=== PATIENT | male | born 1950 | race Caucasian/White ===

== ENCOUNTER 2019-12-15 07:35 | Outpatient (CLI) | payer MEDICARE, OTHER, SELFPAY ==
--- NOTE | ~2019-12-15 | CT_ITS ---
EXAMINATION:CT lung screening DATE: 12/15/2019 09:02 INDICATION: Personal history of tobacco dependence. Smoker who quit 10 years ago with 80 pack year hi story. TECHNIQUE: Computed tomography (CT) of the chest was performed without intravenous contrast. Automate d exposure control and iterative reconstruction technique were employed. The dose-length product (DLP ) was 453.64 mGy-cm. COMPARISON: Chest CT 08/16/2018 FINDINGS: There is moderate emphysema. There is mild peripheral scarring in the lower lobes. There is a 4 mm nodule in the left major fissure. There is a 4 mm nodule in left lower lobe without change. C alcified bilateral lung nodules and calcified left hilar lymph nodes are consistent with old granulom atous disease. No pleural effusion. The heart size is normal. There are coronary artery calcification s. No pericardial effusion. There is mild bilateral gynecomastia. Partially visualized is a 2.6 cm ma ss in left kidney measuring soft tissue attenuation. There is mild thoracic spondylosis. IMPRESSION: 1. Lung-RADS category 2S: Benign appearance or behavior. Continue annual screening with noncontrast l ow-dose chest CT in 12 months. 2. Partially visualized 2.6 cm left kidney mass, which may be a hemorrhagic cysts or less likely a so lid neoplasm. Abdomen CT without and with contrast is recommended. Reviewed, dictated and finalized at location A. IMPRESSION: 1. Lung-RADS category 2S: Benign appearance or behavior. Continue annual screen ing with noncontrast low-dose chest CT in 12 months. 2. Partially visualized 2.6 cm left kidney mass, which may be a hemorrhagic cys ts or less likely a solid neoplasm. Abdomen CT without and with contrast is rec ommended.
--- NOTE | ~2019-12-15 | US_ITS ---
EXAMINATION: US aorta DATE: 12/15/2019 08:31 INDICATION: Abdominal aortic aneurysm. TECHNIQUE: Grayscale, color Doppler, and pulsed Doppler images of the aorta and common iliac arteries were obtained. COMPARISON: Ultrasound 08/17/2018 FINDINGS: The aorta demonstrates a 5.2 x 4.5 cm fusiform infrarenal aneurysm. The right common iliac artery mauricio sures 1.5 cm. The left common iliac artery measures 1.5 cm. IMPRESSION: 1. 5.2 cm fusiform infrarenal aortic aneurysm with interval worsening. Abdomen and pelvis CTA is jaja mmended. Reviewed, dictated and finalized at location A. IMPRESSION: 1. 5.2 cm fusiform infrarenal aortic aneurysm with interval worsening. Abdomen and pelvis CTA is recommended.
== END 2019-12-15 07:36 | disposition home or self-care (01) ==
LOC: CHSIMG 07:41
PROVIDERS: PCP Internal Medicine; Visit Provider Internal Medicine
DX: I71.4 Abdominal aortic aneurysm, without rupture (principal); Z12.2 Encounter for screening for malignant neoplasm of respiratory organs; Z87.891 Personal history of nicotine dependence
CPT/HCPCS: 76775; G0297

== ENCOUNTER 2019-12-16 09:55 | Outpatient (CLI) | payer MEDICARE, OTHER, SELFPAY ==
--- NOTE | ~2019-12-16 | CT_ITS ---
EXAMINATION: CT abdomen wo/w con DATE: 12/16/2019 11:28 INDICATION: Left renal mass TECHNIQUE: Computed tomography (CT) of the abdomen was performed prior to 10 following the administra tion of 100 cc of Omnipaque 350 intravenous contrast. Automated exposure control and iterative recons truction technique were employed. COMPARISON: 12/15/2019 FINDINGS: Minimal dependent atelectasis is present in the lung bases. The heart size is normal. Punct ate calcifications in an otherwise normal spleen likely represent healed granulomatous disease. The l iver, pancreas, gallbladder, and adrenal glands are normal. There is a 2.6 x 2.7 cm left kidney lesio n without significant enhancement after contrast administration. There is a 5 mm cyst of the right ki dney. There are no pathologically enlarged abdominal lymph nodes. There is no free intraperitoneal ga s or evidence of bowel obstruction. The appendix is normal. There is moderate lumbar spondylosis at L 4-5. IMPRESSION: 1. Proteinaceous cyst of the left kidney. No suspicious kidney mass identified. Reviewed, dictated and finalized at location B.
[2019-12-16 10:27] LABS: Estimated Glomerular Filt Rate > 60
== END 2019-12-16 09:56 | disposition home or self-care (01) ==
LOC: CHSIMG 09:57
PROVIDERS: PCP Internal Medicine; Visit Provider Internal Medicine
DX: D49.512 Neoplasm of unspecified behavior of left kidney (principal)
CPT/HCPCS: 74170; Q9965

== ENCOUNTER 2021-02-27 08:57 | Outpatient (CLI) | payer MEDICARE, OTHER, SELFPAY ==
--- NOTE | ~2021-02-27 | XR_ITS ---
EXAMINATION: XR tibia fibula LT 2V DATE: 02/27/2021 09:45 INDICATION: Left lower leg fracture. TECHNIQUE: 2 views of left tibia and fibula on 4 radiographs were obtained. COMPARISON: None. FINDINGS: There is an oblique fracture of proximal tibial metadiaphysis. Internal fixation is seen wi th antegrade intramedullary liz, distal interlocking screw, and 5 proximal screws. There is a suture anchor in patella. There is a fracture of fibular neck with impaction. There is moderate osteoarthrit is of lateral compartment and mild osteoarthritis of medial and patellofemoral compartments of the kn ee. No knee joint effusion. IMPRESSION: 1. Oblique fracture of proximal tibial metadiaphysis status post open reduction internal fixation. 2. Fracture deformity of left fibular neck. 3. Moderate left knee osteoarthritis. Reviewed, dictated and finalized at location A.
--- NOTE | ~2021-02-27 | XR_ITS ---
EXAMINATION: XR_CERV2-3V_CR DATE: 02/27/2021 09:45 INDICATION: Cervical spine fracture. TECHNIQUE: 4 views of cervical spine were obtained. COMPARISON: None. FINDINGS: Bone alignment is normal. Vertebral body heights and intervertebral disc heights are normal . There is interbody fusion at C2-C3. There is a fracture of the C1 lamina on the lateral view. The f acet joints are unremarkable. No central canal stenosis. IMPRESSION: 1. Fracture of the C1 lamina. Correlation with CT is recommended. Reviewed, dictated and finalized at location A.
== END 2021-02-27 08:58 | disposition home or self-care (01) ==
LOC: CHSIMG 09:02
PROVIDERS: PCP Internal Medicine; Visit Provider Internal Medicine
DX: S82.402D Unspecified fracture of shaft of left fibula, subsequent encounter for closed fracture with routine healing (principal); S82.202D Unspecified fracture of shaft of left tibia, subsequent encounter for closed fracture with routine healing; S12.9XXD Fracture of neck, unspecified, subsequent encounter
CPT/HCPCS: 72040; 73590

== ENCOUNTER 2021-05-31 07:10 | Outpatient (CLI) | payer MEDICARE, OTHER, SELFPAY ==
--- NOTE | ~2021-05-31 | CT_ITS ---
EXAMINATION:CT lung screening DATE: 05/31/2021 07:47 INDICATION: Personal history of tobacco dependence. Smoker who quit 11 years ago with 80 pack year hi story. TECHNIQUE: Computed tomography (CT) of the chest was performed without intravenous contrast. Automate d exposure control and iterative reconstruction technique were employed. The dose-length product (DLP ) was 362.33 mGy-cm. COMPARISON: Chest CT 12/15/2019 FINDINGS: There is moderate emphysema. There is mild scarring in the paraspinal lower lobes. Calcifie d bilateral lung nodules and calcified hilar and mediastinal lymph nodes are consistent with old gran ulomatous disease. There are a few nodules in left lung measuring up to 3 mm. No pleural effusion. Th e heart size is normal. There are coronary artery calcifications. No pericardial effusion. There is m ild thoracic spondylosis. There is a healing fracture of the sternum. There are subacute versus chron ic compression fractures of T1, T2, and T3, new from 12/15/19. There is mild chronic anterior wedging o f T5. IMPRESSION: 1. Lung-RADS category 2: Benign appearance or behavior. Continue annual screening with noncontrast lo w-dose chest CT in 12 months. Reviewed, dictated and finalized at location A. IMPRESSION: 1. Lung-RADS category 2: Benign appearance or behavior. Continue annual screeni ng with noncontrast low-dose chest CT in 12 months.
--- NOTE | ~2021-05-31 | XR_ITS ---
XR tibia fibula LT 2V 05/31/2021 07:48 Indication: Left tibial fracture. Previous surgery in 01/2021 Procedure: 2 views left tibia/fibula Comparison: 02/27/2021 Findings: There is a healing oblique fracture of the proximal tibial metadiaphysis. Internal fixation is seen with intramedullary liz, distal interlocking screw and 5 proximal interlocking screws. There is a suture anchor in the patella. There is a healing fibular neck fracture. There is osteoarthritis of the left knee and ankle. No significant joint effusion. Impression: 1: Healing oblique fracture left proximal tibial metadiaphysis with stable alignment. 2: Healing proximal fibular neck fracture. Reviewed, dictated and finalized at location A. Impression: 1: Healing oblique fracture left proximal tibial metadiaphysis with stable alig nment. 2: Healing proximal fibular neck fracture.
== END 2021-05-31 07:11 | disposition home or self-care (01) ==
LOC: CHSIMG 07:12
PROVIDERS: PCP Internal Medicine; Visit Provider Internal Medicine
DX: Z12.2 Encounter for screening for malignant neoplasm of respiratory organs (principal); Z87.891 Personal history of nicotine dependence; S82.202D Unspecified fracture of shaft of left tibia, subsequent encounter for closed fracture with routine healing
CPT/HCPCS: 71271; 73590

== ENCOUNTER 2022-06-17 08:21 | Outpatient (CLI) | payer MEDICARE, OTHER, SELFPAY ==
--- NOTE | ~2022-06-17 | CT_ITS ---
EXAMINATION: CTA abdomen pelvis DATE: 06/17/2022 09:27 INDICATION: Abdominal aortic aneurysm TECHNIQUE: Computed tomographic angiography (CTA) of the abdomen and pelvis was performed with 100 mL Omnipaque-350 intravenous contrast. Maximum intensity projection 3D-reconstructions of the aorta and other arteries were constructed by the technologist on a separate workstation. The dose-length produ ct (DLP) was 1296.22 mGy-cm. Automated exposure control and iterative reconstruction technique were e mployed. COMPARISON: 12/16/2019 FINDINGS: Minimal dependent atelectasis is present in the lung bases. The heart size is normal. Punct ate calcifications in an otherwise normal spleen likely represent healed granulomatous disease. The l iver, pancreas, gallbladder, and adrenal glands are normal. There is stable 2.7 cm proteinaceous cyst of the left kidney. There is a 5 mm cyst of the right kidney. There is a 3.2 x 3.1 cm fusiform aneur ysm of the infrarenal abdominal aorta. No pathologically enlarged abdominal or pelvic lymph nodes are identified. There is no free intraperitoneal gas or evidence of bowel obstruction. Colonic diverticu losis is present without evidence of diverticulitis. The appendix is normal. There is moderate lumbar spondylosis. IMPRESSION: 1. 3.2 cm fusiform infrarenal abdominal aortic aneurysm. Reviewed, dictated and finalized at location A.
--- NOTE | ~2022-06-17 | CT_ITS ---
EXAMINATION: CT lung screening DATE: 06/17/2022 09:28 INDICATION: Personal history of nicotine dependence, prior smoker with 80 pack year history TECHNIQUE: Computed tomography (CT) of the chest was performed without intravenous contrast. The dose -length product (DLP) was 312.24 mGy-cm. Automated exposure control and iterative reconstruction tech [employer] were employed. COMPARISON: 05/31/2021 FINDINGS: There is moderate emphysema. There are stable nodules measuring up to 3 mm in the left lowe r lobe. No new pulmonary nodules are identified. The lungs are free of acute opacities. No pleural ef fusion or pneumothorax. Calcified pulmonary nodules and calcified left hilar lymph nodes are consiste nt with old granulomatous disease. Bilateral gynecomastia is noted. No pathologically enlarged thorac ic lymph nodes are identified. The heart size is normal. There is mild thoracic spondylosis. Chronic compression fractures of T1, T2, and T3 are again noted. IMPRESSION: 1. Lung-RADS category 2: Benign appearance or behavior. Continue annual screening with noncontrast lo w-dose chest CT in 12 months. Reviewed, dictated and finalized at location A. IMPRESSION: 1. Lung-RADS category 2: Benign appearance or behavior. Continue annual screeni ng with noncontrast low-dose chest CT in 12 months.
[2022-06-17 08:45] LABS: Estimated Glomerular Filt Rate > 60
== END 2022-06-17 08:22 | disposition home or self-care (01) ==
LOC: CHSIMG 08:24
PROVIDERS: PCP Internal Medicine; Visit Provider Internal Medicine
DX: I71.40 Abdominal aortic aneurysm, without rupture, unspecified (principal); Z12.2 Encounter for screening for malignant neoplasm of respiratory organs; Z87.891 Personal history of nicotine dependence
CPT/HCPCS: 71271; 74174; Q9967

== ENCOUNTER 2023-06-18 07:15 | Outpatient (CLI) | payer MEDICARE, OTHER, SELFPAY ==
--- NOTE | ~2023-06-18 | CT_ITS ---
CT Scan of the Chest without Contrast: Clinical Indication: Lung cancer screening, personal history of nicotine dependence Technique: Contiguous sections were acquired throughout the chest without intravenous contrast. Dose reduction technique was used on this scan by utilizing automated exposure control and iterative recon struction technique. The dose-length product (DLP) was 306.95 mGy-cm. COMPARISON: 06/17/2022, 05/31/2021 Findings: There is no evidence of any significant mediastinal, hilar or axillary lymphadenopathy. Small calcifi ed left hilar lymph nodes are present. Atherosclerotic calcifications of the aorta and coronary arter ies are present. There is no evidence of pleural or pericardial effusion. Stable 3 mm left lower lobe pulmonary nodule noted. Several small calcifications, as are present. Mil d to moderate emphysema present. Images through the upper abdomen reveal no abnormalities. There are stable compression deformities of T1, T2, and T3. Impression: Lung RADS 2: Benign appearance. 12 month follow-up screening CT advised. Reviewed, dictated and finalized at location . Impression: Lung RADS 2: Benign appearance. 12 month follow-up screening CT advised.
--- NOTE | ~2023-06-18 | CT_ITS ---
EXAMINATION: CTA abdomen pelvis DATE: 06/18/2023 08:17 INDICATION: Abdominal aortic aneurysm TECHNIQUE: Computed tomographic angiography (CTA) of the abdomen and pelvis was performed with 100 mL Omnipaque-350 intravenous contrast. Maximum intensity projection 3D-reconstructions of the aorta and other arteries were constructed by the technologist on a separate workstation. The dose-length produ ct (DLP) was 1420.47 mGy-cm. Automated exposure control and iterative reconstruction technique were e mployed. COMPARISON: 06/17/2022 FINDINGS: Minimal dependent atelectasis is present in the lung bases. The heart size is normal. The l iver, spleen, pancreas, gallbladder, and adrenal glands are normal. There is a 2.8 cm proteinaceous c yst of the left kidney. There is a 5 mm cyst of the right kidney. There is a stable 3.2 x 3.1 cm fusi form infrarenal abdominal aortic aneurysm. No pathologically enlarged abdominal or pelvic lymph nodes are identified. No free intraperitoneal gas or evidence of bowel obstruction. There is calcified ath erosclerosis of the aorta and many of the other arteries. The celiac axis, superior mesenteric artery , and inferior mesenteric artery are normal at their origins. There is a single left renal artery. Th ere are two right renal arteries, one of which is small in caliber. Colonic diverticulosis is present without evidence of diverticulitis. The appendix is normal. There is moderate lumbar spondylosis at L4-5. IMPRESSION: 1. Stable 3.2 cm fusiform infrarenal abdominal aortic aneurysm. Reviewed, dictated and finalized at location L.
[2023-06-18 07:41] LABS: Estimated Glomerular Filt Rate > 60
== END 2023-06-18 07:16 | disposition home or self-care (01) ==
LOC: CHSIMG 07:18
PROVIDERS: PCP Internal Medicine; Visit Provider Internal Medicine
DX: I71.43 Infrarenal abdominal aortic aneurysm, without rupture (principal); Z12.2 Encounter for screening for malignant neoplasm of respiratory organs; Z87.891 Personal history of nicotine dependence
CPT/HCPCS: 71271; 74174; Q9967

== ENCOUNTER 2024-06-23 07:48 | Outpatient (CLI) | payer MEDICARE, OTHER, SELFPAY ==
--- NOTE | ~2024-06-23 | CT_ITS ---
CT Scan of the Chest without Contrast: Clinical Indication: Lung cancer screening, nicotine dependence Technique: Contiguous sections were acquired throughout the chest without intravenous contrast. Dose reduction technique was used on this scan by utilizing automated exposure control and iterative recon struction technique. The dose-length product (DLP) was 391.38 mGy-cm. COMPARISON: 06/18/2023 Findings: There is no evidence of any significant mediastinal, hilar or axillary lymphadenopathy. Calcified lef t hilar and mediastinal lymph nodes are present. Extensive coronary artery calcifications are present . There is no evidence of pleural or pericardial effusion. Stable 3 mm left lower lobe pulmonary nodule (axial image 83). Moderate emphysema present. Images through the upper abdomen reveal no abnormalities. Stable mild compression deformities in the upper thoracic spine. Impression: Lung RADS 2: Benign appearance. 12 month follow-up screening CT advised. Reviewed, dictated and finalized at [facility]. Impression: Lung RADS 2: Benign appearance. 12 month follow-up screening CT advised.
--- NOTE | ~2024-06-23 | CT_ITS ---
EXAMINATION: CTA abdomen pelvis DATE: 06/23/2024 09:33 INDICATION: Abdominal aortic aneurysm. TECHNIQUE: Computed tomographic angiography (CTA) of the abdomen and pelvis was performed with 100 mL Omnipaque-350 intravenous contrast. Automated exposure control and iterative reconstruction techniqu e were employed. The dose-length product was 1357.68 mGy-cm. Maximum intensity projection 3D-reconstr uctions of the aorta and other arteries were constructed by the technologist on a separate workstatio n. COMPARISON: CT 06/18/2023 FINDINGS: The visualized portions of the lung bases demonstrate mild atelectasis on the right. No ple ural effusion. The heart size is normal. No pericardial effusion. The liver, gallbladder, pancreas, a nd adrenal glands are normal. Calcifications in the spleen are consistent with old granulomatous dise ase. The right kidney is normal. There is a 2.9 cm cyst in left kidney. The prostate is mildly enlarg ed. There is diverticulosis of the colon without evidence of diverticulitis. The appendix is normal. There are no dilated loops of bowel. There are no pathologically enlarged lymph nodes. There is no fr ee intraperitoneal fluid. There is a 3.3 cm fusiform aneurysm of infrarenal aorta. There is severe minoo mbar spondylosis. There is a chronic compression fracture of L5. IMPRESSION: 1. 3.3 cm fusiform aneurysm of infrarenal aorta, stable from 06/18/23. Reviewed, dictated and finalized at location A.
[2024-06-23 08:27] LABS: Estimated Glomerular Filt Rate 55
== END 2024-06-23 07:49 | disposition home or self-care (01) ==
LOC: CHSIMG 07:51
PROVIDERS: PCP Internal Medicine; Visit Provider Internal Medicine
DX: I71.43 Infrarenal abdominal aortic aneurysm, without rupture (principal); Z12.2 Encounter for screening for malignant neoplasm of respiratory organs; Z87.891 Personal history of nicotine dependence
CPT/HCPCS: 71271; 74174; Q9967

== ENCOUNTER 2025-06-26 07:09 | Outpatient (CLI) | payer MEDICARE, OTHER, SELFPAY ==
--- OUTSIDE RECORDS SUMMARY | 2025-06-19 03:45 | XMS_ITS ---
Author Organization [facility], Address [address] [facility] [address] [place] [address] Care Team Providers Care Vice President Business & Corporate Development Name Role Phone Sam HAMILTON, [facility] Primary Care Provider Arnie South Unavailable [phone] REASON FOR VISIT Injection MEDICATIONS Medication SIG (Take, Route, Fr equency, Duration) Notes Start Date End Date Status Valsartan Active Metoprolol Succinate ER Active hydroCHLOROthiazide Active Gabapentin 300 MG 1 capsule Orally twi ce daily for 30 days 06/20/2025 Active Eliquis Active Ferrous Sulfate Acti ve Magnesium Active Rosuvastatin Calcium Active oxyCODONE-Acetaminophen Active Encounters Encounter Location Date Provider Diagnosis [facility], [place] [id number] [facility] [address] [place] [address] 06/19/2025 Arnie Galeana PLAN OF TREATMENT Medication Medication Name Sig Start Date Stop Date Notes Gabapentin 300 MG 1 capsule Orally twice daily for 30 days 06/20/2025
--- NOTE | ~2025-06-26 | CT_ITS ---
EXAMINATION:CT lung screening DATE: 06/26/2025 07:58 INDICATION: Personal history of nicotine dependence. TECHNIQUE: Computed tomography (CT) of the chest was performed without intravenous contrast. Automated exposure control and iterative reconstruction technique were employed. The dose-length product (DLP) was 1430.36 mGy-cm. COMPARISON: Chest CT 06/23/2024 FINDINGS: There is moderate emphysema. There is chronic peripheral septal thickening in the lungs. There is a 3 mm nodule in left lower lobe. There is a 3 mm nodule at left major fissure. Calcified bilateral lung nodules and calcified left hilar and mediastinal lymph nodes are consistent with old granulomatous disease. No pleural effusion. The heart size is normal. There are coronary artery calcifications. No pericardial effusion. There is mild thoracic spondylosis. There is chronic height loss of multiple thoracic vertebral bodies. IMPRESSION: 1. Lung-RADS category 2: Benign appearance or behavior. Continue annual screening with noncontrast low-dose chest CT in 12 months. Reviewed, dictated and finalized at location E. IMPRESSION: 1. Lung-RADS category 2: Benign appearance or behavior. Continue annual screeni ng with noncontrast low-dose chest CT in 12 months.
--- NOTE | ~2025-06-26 | CT_ITS ---
EXAMINATION: CTA abdomen pelvis DATE: 06/26/2025 07:58 INDICATION: Abdominal aortic aneurysm. TECHNIQUE: Computed tomographic angiography (CTA) of the abdomen and pelvis was performed with 100 mL Omnipaque-350 intravenous contrast. Automated exposure control and iterative reconstruction technique were employed. The dose-length product was 1430.36 mGy-cm. Maximum intensity projection 3D-reconstructions of the aorta and other arteries were constructed by the technologist on a separate workstation. COMPARISON: CTA 06/23/2024 FINDINGS: The visualized portions of the lung bases demonstrate mild atelectasis. No pleural effusion. The heart size is normal. No pericardial effusion. There are coronary artery calcifications. The liver, gallbladder, and pancreas are normal. Calcifications in the spleen are consistent with old granu lomatous disease. The adrenal glands are normal. There are cysts in the kidneys measuring up to 3.0 cm on the left. The prostate is mildly enlarged. There is diverticulosis of the colon without evidence of diverticulitis. The appendix is normal. There are no dilated loops of bowel. There are no pathologically enlarged lymph nodes. There is no free intraperitoneal fluid. There is a 3.6 cm fusiform aneurysm of infrarenal aorta. There is no significant stenosis of celiac axis, superior mesenteric artery, the renal arteries, or inferior mesenteric artery. There is severe lumbar spondylosis. There is a chronic compression fracture of L5. IMPRESSION: 1. 3.6 cm fusiform aneurysm of infrarenal aorta which measured 3.3 cm on 06/23/2024. Reviewed, dictated and finalized at location E. IMPRESSION: 1. 3.6 cm fusiform aneurysm of infrarenal aorta which measured 3.3 cm on 2023.
--- OUTSIDE RECORDS SUMMARY | 2025-06-26 07:13 | XMS_ITS | Clinical Summary ---
Author Organization [facility] Address [address] [place] [address] Care Team Providers Care Linesperson Name Role Phone Brayan Vargas MD Primary Care Provider [phone] Source Comments [facility],non-owned Affiliates and Associated Physician Practices is amultiple site organization consisting of ambulatory clinics and hospital sitesin [place], [place] and [place]. This disclosure is being madepursuant to the Care Everywhere program and may not contain all information available regarding this patient. Last updated 18.[facility] Allergies No known active allergies Medications * Be aware that medications may not be up to date on this document. Alwaysverify current medications with the patient. Cyanocobalamin (VITAMIN B 12) 100 MCG Take by mouth. 12/24/2016 Active fish oil/omega-3 fatty acids (PROMEGA;CARDI- OMEGA 3) 1000 MG capsule Take 1,200 capsules by mouth daily with food Active ASPIRIN 81 PO Take 81 mg by mouth once daily Active metoprolol succinate XL 24hr (TOPROL XL) 100 MG tablet Take 100 mg by mouth Active multivitamins (ONE A DAY) capsule Take 1 capsule by mouth once daily Active pantoprazole EC (PROTONIX) 40 MG tablet Take 40 mg by mouth once daily 05/21/2012 Active rosuvastatin (CRESTOR) 20 MG tablet Take 20 mg by mouth once daily Active valsartan-hydro CHLOROthiazide (DIOVAN HCT) 160-25 MG tablet Take 1 tablet by mouth once daily Active Biotin 1000 MCG Take 1,000 mcg by mouth once daily Active Active Problems Problem Noted Date Diagnosed Date Cataract of left eye 04/14/2018 Cataract of right eye 03/31/2018 History of colonic polyps 12/25/2014 Overview (12/07/2017): 01/2012 adenomatous polyp, non advanced Repeat 01/2017 Metabolic syndrome 10/20/2013 Essential (primary) hypertension 07/09/2012 Gastro-esophageal reflux disease without esophag itis 07/09/2012 Overview (12/07/2017): With breakthrough symptoms Hyperlipidemia 07/09/2012 Atherosclerotic heart diseas e of [place] coronary artery without angina pectoris 07/09/2012 Overview (12/07/2017): Had a cath in 1998 that showed minimal disease, no issues since then Strong Family history Pre-operative clearance 09/25/2010 Immunizations Immunization Administration Dates Next Due INFLUENZA VACCINE 07/09/2015,06/22/2012 Family History Medical History Relation Name Comments Macular Degeneration Brother None Known Father Status: d Cancer - Colon Maternal Aunt Cancer Mother lump in breast (healed); Status: Alive Asthma Neg Hx CVA Neg Hx Cancer - Breast Neg Hx Cancer - Other Neg Hx Cancer - Skin, Melanoma Neg Hx Cancer - Skin, Non Melanoma Neg Hx Diabetes - Type 2 Neg Hx Eczema Neg Hx Glaucoma Neg Hx Hemophilia Neg Hx Psoriasis Neg Hx Relation Name Status Comments Brother Father Maternal Aunt Mother Social History Tobacco Use Types Packs/Day Years Used Date Smoking Tobacco: Former Cigarettes Q uit: 01/05/2007 Smokeless Tobacco: Never Alcohol Use Standard Drinks/Week Comments Yes 3 (1 standard drink = 0.6 oz pur e alcohol) occasional Sex and Gender Information Value Date Recorded Sex Assigned at Not on file Legal Sex Male 5:21 PM [facility] Gender Identity Not on file Sexual Orientation Not on file Last Filed Vital Signs Vital Sign Reading Time Taken Comments Blood Pressure 134/82 09/29/2018 9:55 AM [facility] Pulse 53 09/29/2018 9:55 AM [facility] Temperature 36.7 C (98 F) 09/29/2018 7:33 AM [facility] Respiratory Rate 10 09/29/2018 9:55 AM [facility] Oxygen Saturation 94% 09/29/2018 10:02 AM [facility] Inhaled Oxygen Concentration 21% 03/31/2018 1 :41 PM CDT Weight 113.4 kg (250 lb) 09/29/2018 7:26 AM [facility] Height 170.2 cm (5' 7) 09/29/2018 7:26 AM [facility] Body Mass Index 39.16 09/29/2018 7:26 AM [facility] Plan of Treatment Health Maintenance Due Date Last Done Comments COLOGUARD (AGES 45-75) - COLON CA SCREENING 1950 CT COLONOGRAPHY - COLON CA SCREENING 1950 FIT - COLON CA SCREENING 1950 FLEX SIG - COLON CA SCREENING 1950 HEPATITIS C SCREENING 12/18/1969 DTAP/TDAP/TD VACCINES (1 - Tdap) 12/22/1970 PNEUMOCOCCAL VACCINE 50+ (1 of 1 - PCV) 12/22/2001 ZOSTER VACCINE (1 of 2) 12/22/2001 AAA SCREENING 12/22/2016 SCREENING FOR DIABETES 12/18/2017 DEPRESSION SCREENING 09/07/2024 COVID-19 VACCINE (1 - season) 2025 INFLUENZA VACCINE (#1) 2025 07/09/2015, 2011 Respiratory Syncytial Virus (RSV) Vaccine Pt: or over 60 yrs (1 - 1-dose 75+ series) 12/22/2026 COLON MONITORING 09/29/2028 09/29/2018, , 09/29/2018, Additional history exists COLONOSCOPY - COLON CA SCREENING 09/29/2028 09/29/2018, 09/29/2018, 09/29/2018, Additional history exists Colorectal Cancer Screening 09/29/2028 HEPATITIS B VACCINE Aged Out No longe r eligible based on patient's age to complete this topic HIB VACCINE Aged Out No longer eligi ble based on patient's age to complete this topic HPV VACCINE Aged Out No longer eligi ble based on patient's age to complete this topic MENINGOCOCCAL (Group B) VACCINE SHARED DECISION-MAKING Aged Out No longer eligible based on patient's age to complete this topic MENINGOCOCCAL GROUPS A/C/Y/W VACCINE Aged Out No longer eligible based on patient's age to complete this topic Medical Devices Implanted Type Area Psychological Examiner Device Identifier Shelf Expiration Date Model / Serial / Lot Lens Iol +21.5 Amanda Hpt C Bcnvx Tecnis - [id number] Implanted:Qty: 1 on 03/31/2018 by Giovany Story MD at [facility] Right: Eye [employer] 02/16/2021 [id number] / [id number] / Lens Iol +20 Amanda Mod C Bcnvx [facility] [id number] Implanted:Qty: 1 on 04/14/2018 by Giovany Story MD at [facility] Left: Eye [employer] 03/08/2021 [id number] / [id number] / Procedures Procedure Name Priority Date/Time Associated Diagnosis Comments ENDOSCOPY, COLON, SCREENING Routine 09/29/2018 7:48 AM [facility] from Last 3 Months or Most Recently Relevant to Health Maintenance Results * ENDOSCOPY, COLON, SCREENING (09/29/2018 7:48 AM [facility]) Report Endoscopy POC _ Patient Name: Shorty Mathews Procedure Date: 09/29/2018 7:48 AM Date of : 1950 Admit Type: Outpatient Age: 67 Gender: Male Attending MD: Karissa Claudio MD _ Procedure: Colonoscopy Indications: High risk colon cancer surveillance: Personal history of adenoma less than 10 mm in size Providers: Karissa Claudio MD (Doctor), Dorothea Yousif RN, Charu Rivas, Multicultural Services Librarian, Fahad Davis MD (Fellow) Patient Profile: 67 year old male with a history of adenomatous colon polyp presenting for surveillance colonoscopy. Referring MD: Brayan Vargas MD (Referring MD) Medicines: Fentanyl 100 micrograms IV, Midazolam 5 mg IV, Diphenhydramine 50 mg IV Complications: No immediate complications. _ Procedure: Pre-Anesthesia Assessment: - Prior to the procedure, a History and Physical was performed, and patient medications and allergies were reviewed. The patient's tolerance of previous anesthesia was also reviewed. The risks and benefits of the procedure and the sedation options and risks were discussed with the patient. All questions were answered, and informed consent was obtained. Prior Anticoagulants: The patient has taken aspirin, last dose was 1 day prior to procedure. ASA Grade Assessment: II - A patient with mild systemic disease. After reviewing the risks and benefits, the patient was deemed in satisfactory condition to undergo the procedure. After I obtained informed consent, the scope was passed under direct vision. Throughout the procedure, the patient's blood pressure, pulse, and oxygen saturations were monitored continuously. The Colonoscope was introduced through the anus and advanced to the cecum, identified by appendiceal orifice and ileocecal valve. The colonoscopy was performed without difficulty. The patient tolerated the procedure well. The quality of the bowel preparation was evaluated using the BBPS ([place] Bowel Preparation Scale) with scores of: Right Colon = 3, Transverse Colon = 3 and Left Colon = 3 (entire mucosa seen well with no residual staining, small fragments of stool or opaque liquid). The total BBPS score equals 9. The ileocecal valve, appendiceal orifice, and rectum were photographed. Impression: - One 5 mm polyp in the ascending colon, removed with a cold snare. Resected and retrieved. - Three 3 to 4 mm polyps in the sigmoid colon, removed with a jumbo cold forceps. Resected and retrieved. - One 10 mm polyp in the rectum, removed with a hot snare. Resected and retrieved. - One 3 mm polyp in the rectum, removed with a jumbo cold forceps. Resected and retrieved. - Internal hemorrhoids. Moderate Sedation: Moderate (conscious) sedation was administered by the endoscopy nurse and supervised by the endoscopist. The following parameters were monitored: oxygen saturation, heart rate, blood pressure, and response to care. Total physician intraservice time was 50 minutes. Findings: A 5 mm polyp was found in the ascending colon. The polyp was sessile. The polyp was removed with a cold snare. Resection and retrieval were complete. Three sessile polyps were found in the sigmoid colon. The polyps were 3 to 4 mm in size. These polyps were removed with a jumbo cold forceps. Resection and retrieval were complete. A 10 mm polyp was found in the rectum. The polyp was sessile. The polyp was removed with a hot snare. Resection and retrieval were complete. A 3 mm polyp was found in the rectum. The polyp was sessile. The polyp was removed with a jumbo cold forceps. Resection and retrieval were complete. Internal hemorrhoids were found during retroflexion. The hemorrhoids were medium-sized. _ Recommendation: - Patient has a contact number available for emergencies. The signs and symptoms of potential delayed complications were discussed with the patient. Return to normal activities tomorrow. Written discharge instructions were provided to the patient. - Resume previous diet. - Continue present medications. - Await pathology results. - Repeat colonoscopy in 3 years for surveillance based on pathology results. - Return to referring physician as previously scheduled. Procedure Code(s): --- Professional --- 75165, Colonoscopy, flexible; with removal of tumor(s), polyp(s), or other lesion(s) by snare technique 51085, 59, Colonoscopy, flexible; with biopsy, single or multiple --- Technical --- 84495, Colonoscopy, flexible; with removal of tumor(s), polyp(s), or other lesion(s) by snare technique 19779, 59, Colonoscopy, flexible; with biopsy, single or multiple Diagnosis Code(s): --- Professional --- Z86.010, Personal history of colonic polyps D12.2, Benign neoplasm of ascending colon K62.1, Rectal polyp D12.5, Benign neoplasm of sigmoid colon K64.8, Other hemorrhoids --- Technical --- Z86.010, Personal history of colonic polyps D12.2, Benign neoplasm of ascending colon K62.1, Rectal polyp D12.5, Benign neoplasm of sigmoid colon K64.8, Other hemorrhoids CPT copyright 2017 [employer]. All rights reserved. The codes documented in this report are preliminary and upon dna analyst review may be revised to meet current compliance requirements. Attending Participation: I was present and participated during the entire procedure, including non-tovar portions. ____ Karissa Claudio MD 09/29/2018 9:18:56 AM Number of Addenda: 0 Note Initiated On: 09/29/2018 7:48 AM [facility] ENDOSCOPY 09/29/2018 7:48 AM [facility] Fahad Davis MD GI PROCEDURE ORDERABL ES Edited Result - Final [facility] ENDOSCOPY from Last 3 Months or Most Recently Relevant to Health Maintenance [place] [id number] MEDICARE COMMERCIAL GENERIC Advance Directives * Full Code (Latest Code Status on File) Date Activated Date Inactivated Comments 04/14/2018 11:18 AM 04/14/2018 2:57 PM * Full Code Date Activated Date Inactivated Comments 03/31/2018 2:01 PM 03/31/2018 3:08 PM * Full Code Date Activated Date Inactivated Comments 03/31/2018 11:50 AM 03/31/2018 2:01 PM Care Teams Linesperson Relationship Specialty Start Date End Date Brayan Vargas MD PCP - General 12/25/14
--- OUTSIDE RECORDS SUMMARY | 2025-06-26 07:13 | XMS_ITS | Clinical Summary ---
Author Organization [facility] Address [address] [place] [address] Phone Care Team Providers Care Facilities Officer Name Role Phone Brayan Vargas MD Primary Care Provider + Allergies Active Allergy Reactions Criticality Noted Date Comments Adhesive Tape-Silicones Rash Low 05/16/2021 Latex tape Medications aspirin (JULIA) 81 mg Oral TabIndications: Pre-operative clearance,CAD (coronary artery disease),Chest pain, unspecified Take 81 mg by mouth daily. Active pantoprazole (PROTONIX) 40 mg Oral TbEC Take 40 mg by mouth daily. 2 Active fexofenadine (SHEBA) 180 mg tabletIndicatio ns:Coronary artery disease involving [place] coronary artery of [place] heart without angina pectoris,Essent ial hypertension,Hy pertriglyceride jimi,Elevated blood sugar Take 180 mg by mouth daily. Active FeroSuL 325 mg (65 mg iron) tablet TAKE 1 TABLET BY MOUTH EVERY DAY THANK YOU 3 Active valsartan (DIOVAN) 320 mg tablet Take 1 Tablet (320 mg) by mouth daily. 90 Tablet 3 4 Active metoprolol succinate (TOPROL XL) 50 mg Extended Release 24 hour tablet TAKE 1 TABLET EVERY DAY 90 Tablet 3 5 Active rosuvastatin (CRESTOR) 20 mg tablet TAKE 1 TABLET AT BEDTIME 90 Tablet 3 5 Active hydroCHLOROthia zide 25 mg tablet TAKE 1 TABLET EVERY DAY 90 Tablet 3 5 Active Eliquis 5 mg tablet TAKE 1 TABLET TWICE DAILY 180 Tablet 2 5 Active Eliquis 5 mg tablet take 1 tablet twice daily 180 Tablet 3 4 025 Discontinued Active Problems Patient Care Coordination No te Formatting of this note migh t be different from the original. Insurance Premium Auditor - Dr. Ervin ([facility] office) LDL goal < 100 Problem Noted Date Diagnosed Date Prediabetes 07/04/2019 Morbid obesity with body mass index of 40.0-49.9 03/03/2019 Metabolic syndrome 10/20/2013 HTN (hypertension) 09/29/2011 CAD (coronary artery disease) 03/26/2011 Pre-operative clearance 09/25/2010 Hypertriglyceridemia 09/25/2010 Encounters Date Type Department Care Team Description 06/23/2025 Abstract [facility] [address] [place] [address] Thelma Ervin MD 06/20/2025 Telephone [facility] [address] [place] [address] Thelma Ervin MD Needs Form Or Letter Filled Out 06/02/2025 Refill [facility] [address] [place] [address] Thelma Ervin MD 05/23/2025 External Device Data [facility] ABSTRACTION Provider, Abstract 04/01/2025 Refill [facility] [id number] [place] [address] Thelma Ervin MD from Last 3 Months Immunizations Immunization Administration Dates Next Due Influenza Seasonal Unspecifi ed Formulation IM 05/17/2019,07/09/2015,06/22/2012 Family History Medical History Relation Name Comments Heart Surgery Brother Heart Attack Father Heart Failure Father Hypertension Father Cancer Maternal Aunt Cancer Mother Hypertension Mother Asthma Neg Hx Bronchitis Neg Hx Diabetes Neg Hx Emphysema Neg Hx Lung Cancer Neg Hx Mesothelioma Neg Hx Tuberculosis Neg Hx Relation Name Status Comments Brother Alive Father Maternal Aunt Mother Alive Social History Tobacco Use Types Packs/Day Years Used Date Smoking Tobacco: Former Cigarettes Smokeless Tobacco: Never Tobacco Cessation:Counseling Given: Not Answered Comments:quit 2007 Alcohol Use Standard Drinks/Week Comments Yes 0 (1 standard drink = 0.6 oz pur e alcohol) rarely Sex and Gender Information Value Date Recorded Sex Assigned at Not on file Legal Sex Male 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 Gender Identity Not on file Sexual Orientation Not on file Occupation Industry Job Start Date Job End Date Not on file Not on file Not on file Not on file Last Filed Vital Signs Vital Sign Reading Time Taken Comments Blood Pressure 132/82 02/23/2025 8:51 AM CDT Pulse 60 02/23/2025 8:51 AM CDT Temperature 36.2 C (97.2 F) 05/16/2021 10:42 AM CDT Respiratory Rate 17 04/12/2020 11:30 AM CDT Oxygen Saturation 95% 02/23/2025 8:51 AM CDT Inhaled Oxygen Concentration - - Weight 119.3 kg (263 lb) 02/23/2025 8:51 AM CDT Height 170.2 cm (5' 7) 02/23/2025 8:51 AM CDT Body Mass Index 41.19 02/23/2025 8:51 AM CDT Plan of Treatment Upcoming Encounters Date Type Department Care Team (Late st Contact Info) Description 08/28/2025 10:00 AM RECEIVING ROOM CLERK Office Visit [facility] - [facility] [phone] [address] [place] [address] Thelma Ervin MD [address] [place] [address] Health Maintenance Due Date Last Done Comments DTAP/TDAP/TD VACCINES (1 - Tdap) 12/22/1970 PNEUMOCOCCAL VACCINE 50+ YEA RS (1 of 2 - PCV) 12/22/1970 FIT-DNA Q 3 years 12/22/1996 FIT/FOBT Q 1 year 12/22/1996 Flex Sig/CT Colonography Q 5 years 12/22/1996 RSV VACCINE (60+ or ) (1 - Risk 50-74 years 1-dose series) 12/22/2001 ZOSTER VACCINE (1 of 2) 12/22/2001 INFLUENZA VACCINE (#1) 2025 9, 07/09/2015, 06/22/2012 COLORECTAL SCREENING 04/14/2033 04/14/2023, 04/14/2023, 04/14/2023, Additional history exists Colorectal Cancer Screening 04/14/2033 Abdominal Aortic Aneurysm (A AA) Screening Completed 12/15/2019 Procedures Procedure Name Priority Date/Time Associated Diagnosis Comments US AORTA Routine 12/15/2019 from Last 3 Months or Most Recently Relevant to Health Maintenance Results * US AORTA (12/15/2019) Anatomical Region Laterality Modality Abdomen Ultrasound us Abstract Provider US ORDERABLES Final Result from Last 3 Months or Most Recently Relevant to Health [place] [address] MEDICARE PART A AND B GENERIC PAYOR Advance Directives For more information, please contact: [phone] * Full Code (Latest Code Status on File) Date Activated Date Inactivated Comments 07/12/2019 6:42 AM 07/12/2019 2:56 PM * Full Code Date Activated Date Inactivated Comments 09/22/2012 12:45 PM 09/22/2012 6:55 PM * Full Code Date Activated Date Inactivated Comments 09/22/2012 8:58 AM 09/22/2012 12:45 PM Care Teams Facilities Officer Relationship Specialty Start Date End Date Brayan Vargas MD [address] [place] [id number] PCP - General Internal Medicine 10/26/14
--- OUTSIDE RECORDS SUMMARY | 2025-06-26 07:13 | XMS_ITS | Clinical Summary ---
Author Organization [facility] Address [address] [place] [address] Care Team Providers Care Construction Manager Name Role Phone Unavailable Primary Care Provider Unavailabl e Social History Tobacco Use Types Packs/Day Years Used Date Smoking Tobacco: Never Assessed Sex and Gender Information Value Date Recorded Sex Assigned at Not on file Legal Sex Male 1:38 PM CDT Gender Identity Not on file Sexual Orientation Not on file Plan of Treatment Health Maintenance Due Date Last Done Comments Colorectal Cancer Screening Colonoscopy (10 Years) 1950 Hepatitis C 12/22/1969 DTaP, Tdap and Td Vaccines ( 1 - Tdap) 12/22/1970 Pneumococcal Vaccine: 50+ Ye ars (1 of 1 - PCV) 12/22/2001 Zoster Vaccines (1 of 2) 12/22/2001 COVID-19 Vaccine ( - 2023-2 5 season) 2025 Influenza Adult (#1) 2025 RSV Immunization or 60+ Years (1 - 1-dose 75+ series) 12/22/2026 Meningococcal B Vaccine Aged Out No l onger eligible based on patient's age to complete this topic Meningococcal Vaccine Aged Out No miguelangel amauri eligible based on patient's age to complete this topic RSV Immunizations Under 20 Months Aged Out No longer eligible based on patient's age to complete this topic
--- OUTSIDE RECORDS SUMMARY | 2025-06-26 07:13 | XMS_ITS | Clinical Summary ---
Author Organization [facility] Address [address] [place] [address] Care Team Providers Care Label Folder Name Role Phone Brayan Vargas MD Primary Care Provider [phone] Allergies No known active allergies Medications metoprolol (LOPRESSOR) 100 mg tablet Take 1 tablet (100 mg total) by mouth daily Active rosuvastatin (CRESTOR) 20 mg tablet Take 20 mg by mouth daily Active aspirin 81 mg enteric coated tablet Take 81 mg by mouth daily Active omega-3 fatty acids-fish oil 300-1,000 mg capsule Take 2 g by mouth daily Active valsartan-hydroc hlorothiazide (DIOVAN-HCT) 160-25 mg per tablet Take 1 tablet by mouth daily Active pantoprazole DR (PROTONIX) 40 mg EC tablet Take 40 mg by mouth daily Active multivitamin with minerals tablet Take 1 tablet by mouth daily Active cyanocobalamin (Vitamin B-12) 1,000 mcg tabletIndication s:Prevention of Vitamin B12 Deficiency Take 1,000 mcg by mouth daily Active apixaban (ELIQUIS) 5 mg tablet Take 1 tablet (5 mg total) by mouth 2 (two) times a day Active Active Problems Problem Noted Date Diagnosed Date Personal history of colonic polyps 02/04/2023 Encounter for screening colonoscopy 02/04/2023 CAD (coronary artery disease) 07/02/2019 GERD (gastroesophageal reflux disease) 9 Hypercholesterolemia 07/19/2012 Overview (12/10/2016): Hypercholesteremia Uncontrolled hypertension 07/19/2012 Overview (12/11/2016): Hypertension Compartment syndrome 07/19/2012 Overview (12/11/2016): Compartment syndrome Immunizations Immunization Administration Dates Next Due Influenza, Unspecified 05/31/2019 Surgical History Surgery Date Site/Laterality Comments BACK SURGERY 1998 Back Surgery OTHER SURGICAL HISTORY L Fasciotomy COLONOSCOPY 09/07/2018 - 09/06/2019 Medical History Medical History Date Comments CAD (coronary artery disease) GERD (gastroesophageal reflux disease) Family History Medical History Relation Name Comments Coronary artery disease Father Bakari logany artery disease; Cause of : Coronary artery disease Breast cancer Mother Cancer, breast ; Hypertension Other Family history of Hypertension; Relation Name Status Comments Father (Age 60) Mother Other Social History Tobacco Use Types Packs/Day Years Used Date Smoking Tobacco: Former Smokeless Tobacco: Never Tobacco Cessation:Counseling Given: No Alcohol Use Standard Drinks/Week Comments Yes 2 (1 standard drink = 0.6 oz pur e alcohol) AUDIT-C Answer Date Recorded Frequency of Alcohol Consumption Monthly or less 07/01/2019 Average Number of Drinks 10 or more 019 Frequency of Binge Drinking Never 06/08 Personal Safety Answer Date Recorded Have you ever been in or are you currently in a harmful physical or emotional relationship or is someone making you feel afraid or unsafe? 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 Gender Identity Not on file Sexual Orientation Not on file Obstetrics History Last Filed Vital Signs Vital Sign Reading Time Taken Comments Blood Pressure 165/75 06/14/2024 12:34 PM CDT Pulse 61 06/14/2024 12:30 PM CDT Temperature 36.3 C (97.4 F) 06/14/2024 7:18 AM CDT Respiratory Rate 16 06/14/2024 7:18 AM CDT Oxygen Saturation 93% 06/14/2024 12:30 PM CDT Inhaled Oxygen Concentration - - Weight 115.2 kg (254 lb) 06/14/2024 7:18 AM CDT Height 170.2 cm (5' 7) 06/14/2024 5:45 AM CDT Body Mass Index 39.78 06/14/2024 5:45 AM CDT Plan of Treatment Health Maintenance Due Date Last Done Comments Depression Screening 1950 Fall Risk Assessment 1950 Hepatitis C Screening 1950 Hepatitis B Screening 12/22/1969 Zoster Vaccine (2 of 3) 09/04/2015 07/10/2015 Abdominal Aortic Aneurysm (A AA) Screen 12/22/2016 Well Visit 65+ 12/22/2016 Pneumococcal vaccine 65+ (3 of 3 - PCV20 or PCV21) 06/27/2021 06/27/2016, 08/17/2013 Influenza Vaccine (#1) 2025 9, 05/31/2019, 05/17/2019, Additional history exists DTaP/Tdap/Td Vaccine (2 - Td or Tdap) 05/21/2028 05/21/2018 Colon Cancer Screening-Colonoscopy 04/14/2033 04/14/2023 Colon Cancer Screening-CT Colonography Discontinued 04/14/2023 Colon Cancer Screening-DNA Stool Discontinued 04/14/20 Colon Cancer Screening-FIT Discontinued 04/14/2023 Colon Cancer Screening-Sigmoidoscopy Discontinued 04/14/2023 Procedures Procedure Name Priority Date/Time Associated Diagnosis Comments COLONOSCOPY 04/14/2023 7:08 AM CDT from Last 3 Months or Most Recently Relevant to Health Maintenance Results * COLONOSCOPY (04/14/2023 7:08 AM CDT) Anatomical Region Laterality Modality Other Narrative Procedure Note Farida Garcia MD - 04/14/2023 7:08 AM CDT [facility] Patient Name: Shorty Mathews Procedure Date: 04/14/2023 7:08 AM Date of : 1950 Admit Type: Outpatient Age: 72 Gender: Male Attending MD: Farida Garcia M.D. Room: [facility] ENDOSCOPY ROOM 1 Note Status: Finalized Patient Profile: This is a 72 year old male. History of polyps. No family history of colon cancer per Procedure: Colonoscopy Indications: High risk colon cancer surveillance: Personalhistory of colonic polyps Referring MD: Brayan Vargas MD Providers: Farida Garcia M.D. Impression: - One 4 mm polyp in the descending colon, removedwith a jumbo cold forceps. Resected and retrieved. - Diverticulosis in the sigmoid colon. - One 6 mm polyp in the rectum, removed with ajumbo cold forceps. Resected and retrieved. - Internal hemorrhoids. Recommendation: - Await pathology results. - Repeat colonoscopy in 4 years for screeningpurposes. - Continue present medications. Medicines: Monitored Anesthesia Care Complications: No immediate complications. Estimated Blood Loss: Estimated blood loss: none. Procedure: Pre-Anesthesia Assessment: - Prior to the procedure, a History and Physicalwas performed, and patient medications and allergieswere reviewed. The patient's tolerance of previous anesthesia was also reviewed. The risks andbenefits of the procedure and the sedation options and risks were discussed with the patient. All questions were answered, and informed consent was obtained. Prior Anticoagulants: The patient has taken noanticoagulant or antiplatelet agents except for aspirin. ASAGrade Assessment: III - A patient with severe systemic disease. After reviewing the risks and benefits,the patient was deemed in satisfactory condition to undergo the procedure. The benefits, risks and alternatives of theprocedure and sedation were discussed and informed consentwas obtained. All questions were answered. Please referto the signed informed consent document in the medical record. The bowel preparation used was Miralax via split dose instruction. The bowel preparation usedwas bisacodyl tablets via split dose instruction. The scope was passed under direct vision. The Pediatric Colonoscope PCF-H190L [id number] was introducedthrough the anus and advanced to the the cecum, identifiedby appendiceal orifice and ileocecal valve. Thequality of the bowel preparation was good. Bowel prep was administered using a split dose. Findings: The perianal and digital rectal examinations were normal. The cecum appeared normal. The transverse colon and ascending colon appeared normal. A 4 mm polyp was found in the descending colon. The polyp was semi-sessile. The polyp was removed with a jumbo cold forceps.Resection and retrieval were complete. Many small-mouthed diverticula were found in the sigmoid colon. A 6 mm polyp was found in the rectum. The polyp was semi-sessile. The polyp was removed with a jumbo cold forceps. Resection and retrieval were complete. Internal hemorrhoids were found during retroflexion. The hemorrhoids were small. Electronically signed by Farida Garcia M.D. Farida Garcia M.D. 04/14/2023 8:25:27 AM Number of Addenda: 0 Note Initiated On: 04/14/2023 7:08 AM Procedure Code(s): --- Professional --- 04441, Colonoscopy, flexible; with biopsy, single or multiple Diagnosis Code(s): --- Professional --- Z86.010, Personal history of colonic polyps K64.8, Other hemorrhoids D12.4, Benign neoplasm of descending colon D12.8, Benign neoplasm of rectum K57.30, Diverticulosis of large intestine without perforation orabscess without bleeding CPT copyright 2020 [employer]. All rights reserved. The codes documented in this report are preliminary and upon laborer prestressed concrete reviewmay be revised to meet current compliance requirements. Recognized by the [employer] for promoting quality in endoscopy Farida Garcia MD ENDOSCOPY PROCEDURES Final Result from Last 3 Months or Most Recently Relevant to Health Maintenance Insurance MEDICARE COMMERCIAL GENERIC MEDICARE LOCAL [facility] W M[employer] SUPPLEMENT Advance Directives For more information, please contact: [phone] * Full Code (Latest Code Status on File) Date Activated Date Inactivated Comments 04/14/2023 7:10 AM 04/14/2023 1:10 PM * Full Code Date Activated Date Inactivated Comments 04/14/2023 7:10 AM 04/14/2023 7:10 AM * Full Code Date Activated Date Inactivated Comments 07/01/2019 5:22 PM 07/02/2019 5:50 PM Care Teams Label Folder Relationship Specialty Start Date End Date Brayan Vargas MD [address] [place] [address] PCP - General 12/11/17
--- OUTSIDE RECORDS SUMMARY | 2025-06-26 07:13 | XMS_ITS | Patient Health Record ---
Author Organization [facility] Address [address] [place] [address] Care Team Providers Care Respiratory Therapy Instructor Name Role Phone Brayan Vargas MD Primary Care Provider Arnie South Unavailable [phone] ALLERGIES No Known Allergies RESULTS Component Value Reference Range Notes X ray : Lumbar spine 5 views , AP, Lateral, Spot, Flexion and Extension Reviewed date:06/14/2025 01:15:41 PM Interpretation: Performing Lab: Notes/Report: REASON FOR REFERRAL Reason DIAGNOSES: back pain , spinal stenosis, radiculopathy 3 times per week for 3 weeks eval and treat, exercise, modalities per therapist's discretion; HEP Referral Organization [facility] Referring Provider First Name Arnie Referring Provider Last Name Lissett Referring Provider Speciality Orthopedic Surgery Referred Provider Specialty Physical The rapy Referral Priority Routine MEDICATIONS Medication SIG (Take, Route, Fr equency, Duration) Notes Start Date End Date Status Ferrous Sulfate Acti ve Magnesium Active Valsartan Active Metoprolol Succinate ER Active hydroCHLOROthiazide Active Rosuvastatin Calcium Active Gabapentin 300 MG 1 capsule Orally twi ce daily for 30 days 06/20/2025 Active Eliquis Active oxyCODONE-Acetaminophen Active PROBLEMS Problem Type ICD Code Onset Dates Problem Status W/U Status Risk SNOMED Code Notes Problem Lumbar stenosis with neurogenic claudication (M48.062) Active confirmed Neurogenic claudication ([id number]) VITAL SIGNS Height 67 in 06/14/2025 Weight 250 lbs 06/14/2025 BMI 39.15 kg/m2 06/14/2025 PROCEDURES Procedure Date Ordered Date Performed Result Body Sit e Lumbar Epidural Steroid Injection 06/14/2025 N/ A Encounters Encounter Location Date Provider Diagnosis [facility] [address] [place] [address] 06/14/2025 Arnie Galeana Lumbar stenosis with neurogenic claudication M48.062 [facility] [address] [facility] [address] [place] [address] 06/19/2025 Arnie Galeana ASSESSMENTS Encounter Date Diagnosis Assessment Notes Treatment Notes Treatment Clinical Notes Section Notes 06/14/2025 Lumbar stenosis with neurogenic claudication (ICD-10 - M48.062) PLAN OF TREATMENT Pending Test Test Name Order Date Lumbar Epidural Steroid Injection 2024 Insurance Providers Payer Name Payer Address Payer Phone Subscriber Number Group Number Insured Name Patient Relationship to Insured Coverage Start Date Coverage End Date Medicare [place] [address] [address] [place] [address] [id number] Shorty Alcocer Self - patient is the insured [address] [place] [address] [id number] Shorty Alcocer Self - patient is the insured MEDICAL (GENERAL) HISTORY Medical History History ICD Code HBP Blood clots Arthritis Neck pain/injury Back pain/injury Numbness in feet Surgical History Surgery Date(Month/Year) Low back 1998
--- OUTSIDE RECORDS SUMMARY | 2025-06-26 07:13 | XMS_ITS | Encounter Summary ---
Author Organization [facility] Address [address] [place] [address] Care Team Providers Care Gasoline Pump Mechanic Name Role Phone Brayan Vargas MD Primary Care Provider + Encounter Details Date Type Department Care Team (Latest Contact Info) Description 01/01/2006 Outpatient Historical [facility] Jason Naylor MD 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 Gender Identity Not on file Sexual Orientation Not on file documented as of this encounter Plan of Treatment Upcoming Encounters Date Type Department Care Team (Late st Contact Info) Description 08/28/2025 10:00 AM BULK SEALER OPERATOR Office Visit [facility] [address] [place] [address] Thelma Ervin MD [address] [place] [address] documented as of this encounter Visit Diagnoses Diagnosis Cough- Primary documented in this encounter Care Teams Gasoline Pump Mechanic Relationship Specialty Start Date End Date Brayan Vargas MD [address] [place] [phone] PCP - General Internal Medicine 10/26/14 documented as of this encounter
--- OUTSIDE RECORDS SUMMARY | 2025-06-26 07:13 | XMS_ITS | Encounter Summary ---
Author Organization [facility] Address [address] [place] [address] Care Team Providers Care Wind Plant Manager Name Role Phone Brayan Vargas MD Primary Care Provider + Encounter Details Date Type Department Care Team (Late st Contact Info) Description 01/13/2006 Outpatient Historical [facility] Jason Nayolr MD [address] [facility] [address] [place] [address] Cough (Primary Dx) Social History Tobacco Use Types Packs/Day Years Used Date Smoking Tobacco: Never Assessed Sex and Gender Information Value Date Recorded Sex Assigned at Not on file Legal Sex Male 2:57 AM MANAGER INTENSIVE CARE UNIT Gender Identity Not on file Sexual Orientation Not on file documented as of this encounter Plan of Treatment Upcoming Encounters Date Type Department Care Team (Late Contact Info) Description 08/28/2025 10:00 AM MANAGER INTENSIVE CARE UNIT Office [facility] [address] [place] [address] Thelma Ervin MD [address] [place] [address] documented as of this encounter Visit Diagnoses Diagnosis Cough- Primary documented in this encounter Care Teams Wind Plant Manager Relationship Specialty Start Date End Date Brayan Vargas MD [address] [place] [phone] PCP - General Internal Medicine 10/26/14 documented as of this encounter
[2025-06-26 07:34] LABS: Estimated Glomerular Filt Rate 53
== END 2025-06-26 07:10 | disposition home or self-care (01) ==
LOC: CHSIMG 07:11
PROVIDERS: PCP Internal Medicine; Visit Provider Internal Medicine
DX: Z12.2 Encounter for screening for malignant neoplasm of respiratory organs (principal); Z87.891 Personal history of nicotine dependence; I71.43 Infrarenal abdominal aortic aneurysm, without rupture
CPT/HCPCS: 71271; 74174; Q9967